=== PATIENT | female | born 1985 | race American Indian/Alaskan Native ===

== ENCOUNTER 2016-07-06 11:06 | Emergency (ER) | payer SELFPAY ==
[2016-07-06 13:51] LABS: Bilirubin,Urine NEG (Negative); Blood,Urine NEG (Negative); Ketones,Urine NEG (Negative); Leukocyte Esterase,Urine NEG (Negative); Mucus,Urine 2+ /HPF; Nitrite,Urine NEG (Negative); Protein,Urine <15 mg/dL mg/dL (Negative); Urobilinogen,Urine < 2.0 mg/dL (<2.0)
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
[2016-07-06 16:21] VITALS: BP 102/64
== END 2016-07-06 16:21 | disposition home or self-care (01) ==
LOC: ED 11:06
DX: M79.1 Myalgia (principal)
CPT/HCPCS: 81001; 81025; 99283